=== PATIENT | female | born 1990 | race African-American/Black ===

== ENCOUNTER 2023-04-25 04:53 | Emergency (ER) | payer MEDICAID ==
[~2023-04-25] VITALS: Ht 167.6 cm; Wt 87.0 kg
[2023-04-25 05:10] VITALS: BP 119/72; RESP 16; TEMP 98.7; O2SAT 100
[2023-04-25 05:13] VITALS: PULSE 68
== END 2023-04-25 06:45 | disposition left against medical advice (07) ==
LOC: ER 04:53
DX: M54.50 Low back pain, unspecified (principal); Z53.21 Procedure and treatment not carried out due to patient leaving prior to being seen by health care provider; W01.0XXA Fall on same level from slipping, tripping and stumbling without subsequent striking against object, initial encounter; Y93.89 Activity, other specified; Y92.89 Other specified places as the place of occurrence of the external cause; Y99.8 Other external cause status
CPT/HCPCS: 81025; 99282